=== PATIENT | male | born 1975 | race African-American/Black ===

== ENCOUNTER 2016-05-12 16:51 | Emergency (ER) | payer BC ==
[~2016-05-12] VITALS: Ht 170.2 cm; Wt 72.5 kg
[2016-05-12 16:59] VITALS: BP 137/90; PULSE 92; RESP 14; TEMP 99.4; O2SAT 97
--- NOTE | 2016-05-12 17:11 | PD ---
Physical Exam Date Seen by Provider: May 12, 2016 Time Seen by Provider: 17:09 Narrative 40 year old male presents to the emergency department for evaluation of cough, congestion, fever for 2 days. Patient awaiting bed placement. Data Data Last Documented VS Vital Signs Date Time Temp Pulse Resp B/P Pulse Ox O2 Delivery O2 Flow Rate FiO2 05/12/16 16:59 99.4 92 14 137/90 97 MDM Supervised Visit with HUMBERTO: Mago Villagran May 12, 2016 17:11
--- NOTE | 2016-05-12 17:18 | PD ---
HPI . cough, fever, body aches for 2 days Chief Complaint: Cold / Flu Symptoms Time Seen by Provider: 17:15 Travel History International Travel<30 days: No Contact w/Intl Traveler<30days: No Traveled to known affect area: No History of Present Illness HPI 40-year-old male witha past medical history here with complaints of cough, fever , body aches and just not feeling good for the past 2 days. Patient says immediately before coming to the emergency department he checked his temperature it was 101.2. He denies taking Tylenol or Motrin. He is here because he believes he has influenza. He has not been taking any over-the- counter medications. He does not have a primary care provider. He not receive the flu vaccine this year. [facility] Past Medical History Medical History: Denies Significant Hx Social History Alcohol Use: Yes Tobacco Use: Yes Substance Use: No Allergies-Medications (Allergen,Severity, Reaction): Coded Allergies: Codeine (Verified Allergy, Severe, Itching, 05/12/16) Reported Meds & Prescriptions Reported Meds & Active Scripts Active No Active Prescriptions or Reported Medications Review of Systems General / Constitutional: Positive: Fever Eyes: No: Visual changes HENT: No: Headaches Cardiovascular: No: Chest Pain or Discomfort Respiratory: Positive: Cough, No: Shortness of Breath Gastrointestinal: No: Abdominal Pain Genitourinary: No: Dysuria Musculoskeletal: No: Pain Skin: No Rash Neurologic: No: Weakness Psychiatric: No: Depression Endocrine: No: Polydipsia Hematologic/Lymphatic: No: Easy Bruising Physical Exam Narrative GENERAL: AAO x 3, no acute distress, Well-nourished, well-developed patient. Appears well and comfortable. SKIN: Warm and dry. No visible rashes or bruising. HEAD: Normocephalic and atraumatic. EYES: No scleral icterus. No injection or drainage. ENT: No nasal drainage noted. Mucous membranes pink. Airway patent. Mild to moderate posterior pharynx erythema without exudates or edema. NECK: Supple, trachea midline. No JVD. No lymphadenopathy. CARDIOVASCULAR: Regular rate and rhythm without murmurs, gallops, or rubs. RESPIRATORY: Breath sounds equal bilaterally. No accessory muscle use. No rhonchi or rales. No wheezing. GASTROINTESTINAL: Visual inspection normal EXTREMITIES: No cyanosis or edema. BACK: Nontender without obvious deformity. No CVA tenderness. PSYCH: AAO x 3, normal affect. Data Data Last Documented VS Vital Signs Date Time Temp Pulse Resp B/P Pulse Ox O2 Delivery O2 Flow Rate FiO2 05/12/16 16:59 99.4 92 14 137/90 97 Orders Influenzae A/B Antigen (05/12/16 17:19) MDM Medical Decision Making Medical Screen Exam Complete: Yes Emergency Medical Condition: Yes Medical Record Reviewed: Yes (no prior ) Differential Diagnosis viral syndrome, influenza, less likely PNA Narrative Course 40-year-old male with no past medical history here with complaints of cough, fever, body aches and just not feeling good for the past 2 days. Patient says immediately before coming to the emergency department he checked his temperature it was 101.2. He denies taking Tylenol or Motrin. He is here because he believes he has influenza. He has not been taking any over-the- counter medications. He does not have a primary care provider. He not receive the flu vaccine this year. Patient seen and examined. He has some posterior pharynx erythema without exudates or edema. He denies any sore throat. He has body aches. I will go ahead and swab him for influenza. If positive will treat with course of Tamiflu. If negative he will use [id number] medications for symptom relief including Tylenol or ibuprofen for pain and fever. Discussed viruses vs. bacteria. Patient was understanding. Patient verbalized understanding of instructions, questions were answered, and thanked me for their care. I advised them if their condition worsens, please return to the nearest emergency room for further care. Diagnosis Primary Impression: Viral syndrome Patient Instructions: General Instructions Additional Instructions: Please return to emergency department if your symptoms return or worsen. Follow up with your primary care provider. Take medications as prescribed. Use ibuprofen or Tylenol if needed for fever and pain relief. Scripts No Active Prescriptions or Reported Meds Disposition: 01 DISCHARGE HOME Condition: Stable Gilda Crane May 12, 2016 17:18
== END 2016-05-12 18:32 | disposition home or self-care (01) ==
LOC: NEPK 16:51
DX: B34.9 Viral infection, unspecified (principal); R05 Cough; Z72.0 Tobacco use
CPT/HCPCS: 87804; 99283

== ENCOUNTER 2017-01-12 07:41 | Emergency (ER) | payer BC ==
[~2017-01-12] VITALS: Ht 170.2 cm; Wt 72.5 kg
[2017-01-12 07:42] VITALS: BP 140/94; PULSE 75; RESP 18; TEMP 98.8; O2SAT 98
[2017-01-12] MEDS ORDERED: predniSONE 20 MG TAB PO ONE (08:00)
[2017-01-12] MEDS ORDERED: RESP: ALBUTEROL 2.5 MG/3 ML NEB (SCH) INH ONE (08:00)
[2017-01-12] MEDS ORDERED: VENTAER INH (08:07)
[2017-01-12] MEDS ORDERED: BENZ100 PO (08:07)
[2017-01-12] MEDS ORDERED: PRED-503 PO (08:07)
--- NOTE | 2017-01-12 08:07 | PD ---
HPI Chief Complaint: Cold / Flu Symptoms Time Seen by Provider: 07:59 Travel History International Travel<30 days: No Contact w/Intl Traveler<30days: No Traveled to known affect area: No History of Present Illness HPI 31-year-old male presents to emergency Department with complaint of chest congestion, shortness of breath, cough, nasal congestion, sore throat 4 days. Says his told him he had a fever this morning when she took it but didn't tell him what it was. Denies ear pain. Denies lumps open, difficulty swelling , unusual drooling. Denies abdominal pain, vomiting. Denies chest pain. Has taking NyQuil for symptomatic management. Has not received the influenza vaccine. Symptoms are mild in severity. No known relieving or aggravating factors. Reports smoking black milds occasionally. Allergies to codeine. Denies significant past medical history. Has no other medical complaints. No other modifying factors or associated signs and symptoms. PFSH Social History Alcohol Use: Yes Tobacco Use: Yes Substance Use: No Allergies-Medications (Allergen,Severity, Reaction): Coded Allergies: codeine (Unverified Allergy, Severe, Itching, 01/12/17) Reported Meds & Prescriptions Reported Meds & Active Scripts Active Tessalon Perles (Benzonatate) 100 Mg Cap 100 Mg PO TID PRN 3 Days Deltasone (Prednisone) 20 Mg Tab 40 Mg PO DAILY 4 Days start 01/13/2017 Ventolin Hfa 18 GM Inh (Albuterol Sulfate) 90 Mcg/Act Aer 2 Puff INH Q4-6H PRN Review of Systems Except as stated in HPI: all other systems reviewed are Neg Physical Exam Narrative GENERAL: Well-nourished, well-developed black male patient, in no acute distress ; afebrile, nontoxic-appearing SKIN: Warm and dry. HEAD: Atraumatic. Normocephalic. EYES: Pupils equal and round. No scleral icterus. No injection or drainage. ENT: Mucosa pink and moist. Oropharynx with erythema; without edema or exudates. No uvular edema. No uvular, palatal, or tonsillar deviation. Airway patent. Nares without nasal blood or purulent drainage. EARS: Bilateral pinnae and external canals appear within normal limits. Bilateral tympanic membranes without erythema, dullness or perforation. NECK: Trachea midline. No lymphadenopathy. CARDIOVASCULAR: Regular rate and rhythm. No murmur appreciated. RESPIRATORY: No accessory muscle use. Lungs with mild Wheezing throughout to auscultation. Breath sounds equal bilaterally. No retractions or tachypnea. No Audible wheezing noted. GASTROINTESTINAL: Abdomen soft, non-tender, nondistended. Hepatic and splenic margins not palpable. Bowel sounds are active 4 quadrants. MUSCULOSKELETAL: No obvious deformities. No clubbing. No cyanosis. No edema. NEUROLOGICAL: Awake and alert. Oriented 3. No obvious cranial nerve deficits. Motor grossly within normal limits. Normal speech. Moves all extremities. 5/5 strength to all extremities. PSYCHIATRIC: Appropriate mood and affect; insight and judgment normal. Data Data Last Documented VS Vital Signs Date Time Temp Pulse Resp B/P (MAP) Pulse Ox O2 Delivery O2 Flow Rate FiO2 01/12/17 07:42 98.8 75 18 140/94 (109) 98 Room Air Orders Orders Chest, Single Ap (01/12/17 07:55) Prednisone (Deltasone) (01/12/17 08:00) Influenzae A/B Antigen (01/12/17 07:55) Albuterol Neb (Albuterol Neb) (01/12/17 08:00) Group A Rapid Strep Screen (01/12/17 07:55) Strep Culture (Group A) (01/12/17 08:07) MDM Medical Decision Making Medical Screen Exam Complete: Yes Emergency Medical Condition: Yes Medical Record Reviewed: Yes Differential Diagnosis Acute bronchitis, pneumonia, influenza, strep pharyngitis Narrative Course 41-year-old male with cough/flu/cold symptoms 4 days. Patient is afebrile and nontoxic-appearing. Fever at home with a reported MAXIMUM TEMPERATURE. Lungs with mild wheezing throughout on auscultation. Patient is in no acute distress. Without retractions or tachypnea. Oxygen saturation is 90% on room air. Chest x-ray, influenza, rapid strep, DuoNeb, Deltasone ordered. 0826: Chest x-ray concludes: no acute cardiopulmonary disease. 0854: Influenza and rapid strep negative. Discussed viral illness and symptom management. Deltasone, Ventolin inhaler, Tessalon Perles prescribed for home. Instructed patient to follow up with primary care provider. Patient verbalizes understanding and agreement with treatment plan. Patient is medically cleared and stable for discharge. Discussed reasons to return to the emergency department. Patient agrees with treatment plan. The patients vital signs are stable and the patient is stable for outpatient follow-up and treatment. Patient discharged home, stable and in no acute distress. Diagnosis Primary Impression: Acute bronchitis Qualified Codes: J20.9 - Acute bronchitis, unspecified Referrals: [facility] Primary Care Physician Patient Instructions: Acute Bronchitis (ED), General Instructions, Safe Use of Cough and Cold Medicines (ED) Departure Forms: Tests/Procedures, Work Release Enter return to work date: Jan 13, 2017 Additional Instructions: Use Albuterol inhaler as prescribed Take oral steroids as prescribed and complete full course Use Tessalon Perles as prescribed to decrease coughing spasms [id number] decongestants or antihistamines as directed and as needed for symptom management Your cough can last 4-6 weeks Drink plenty of fluids to prevent dehydration Use hot air humidifier to decrease cough exacerbation Turn off ceiling fans and sleep with head of bed elevated Avoid triggers such as second hand smoke, dust, known allergens Follow-up with your primary care provider Return to the emergency department immediately with worsening of symptoms Med/Other Pt SpecificInfo: Prescription(s) given Scripts Benzonatate (Tessalon Perles) 100 Mg Cap 100 MG PO TID Y for COUGH for 3 Days, CAP 0 Refills Prov: Dionna Morales 01/12/17 Prednisone (Deltasone) 20 Mg Tab 40 MG PO DAILY for 4 Days, #8 TAB 0 Refills start 01/13/2017 Prov: Dionna Morales 01/12/17 Albuterol 18 GM Inh (Ventolin Hfa 18 GM Inh) 90 Mcg/Act Aer 2 PUFF INH Q4-6H Y for SOB/WHEEZING, #1 INHALER 0 Refills Prov: Dionna Morales 01/12/17 Disposition: 01 DISCHARGE HOME Condition: Stable Dionna Morales Jan 12, 2017 08:07
--- NOTE | 2017-01-12 08:21 | RADRPT ---
EXAM DATE/TIME: 01/12/2017 08:06 [facility] COMPARISON: No previous studies available for comparison. INDICATIONS : Chest pain, shortness of breath, cough, fever. MEDICAL HISTORY : Smoker. SURGICAL HISTORY : None. ENCOUNTER: Initial ACUITY: 4 - 6 days PAIN SCORE: 7/10 LOCATION: chest midline. FINDINGS: A single view of the chest demonstrates the lungs to be symmetrically aerated without evidence of mas s, infiltrate or effusion. The cardiomediastinal contours are unremarkable. Osseous structures are intact. CONCLUSION: 1. No acute cardiopulmonary disease. Jese Stark MD on January 12, 2017 at 8:19 Board Certified Radiologist. This report was verified electronically.
== END 2017-01-12 09:14 | disposition home or self-care (01) ==
LOC: NEPD 07:41
DX: J20.9 Acute bronchitis, unspecified (principal); Z72.0 Tobacco use; Z88.5 Allergy status to narcotic agent
CPT/HCPCS: 71010; 87081; 87804; 87880; 94664; 99285; J7512; J7613